=== PATIENT | female | born 1975 | race Caucasian/White ===

== ENCOUNTER 2019-01-19 07:10 | Outpatient (CLI) | payer OTHER ==
--- NOTE | 2019-01-19 09:45 | MRI Report ---
Reason: HEADACHE Procedure Date: 01/19/2019 Accession Number: [id number] / [id number] Procedure: MRI - Brain W/O CPT Code: FULL RESULT: EXAM: MRI BRAIN WITHOUT CONTRAST EXAM DATE: 01/19/2019 07:49 AM. CLINICAL HISTORY: HEADACHE. COMPARISON: None. TECHNIQUE: Multiplanar, multisequence T1-weighted and fluid-sensitive MR sequences of the brain were performed. Sequences optimized for routine evaluation. Other: None. IV Contrast: None. FINDINGS: Brain Volume: Normal for age. Parenchyma/Dura: No mass, acute infarct or hemorrhage. There is a single 4 mm focus of increased T2 signal involving left posterior frontal white matter. No additional white matter signal abnormality. Cerebellar tonsils normal. Ventricles/Cisterns: No hydrocephalus. No abnormal extra-axial fluid collection or hemorrhage. Orbits: Symmetric and unremarkable. Sella Turcica: Unremarkable. IAC: Symmetric and unremarkable. Vasculature: Normal signal flow void is seen in the major arterial structures at the skull base. Sinuses: There is moderate bilateral maxillary sinus mucosal thickening. There is mild ethmoid sinus mucosal thickening. No sinus fluid levels. Bones: No focal pathologic appearing marrow signal changes. Other: None. IMPRESSION: 1. No evidence of infarct, mass, or other acute intracranial process. 2. Single focus of nonspecific white matter signal change, within normal limits for adults. This may be seen as a sequela of migraine. 3. Mild chronic appearing paranasal sinus disease. [facility]
== END 2019-01-19 07:11 | disposition home or self-care (01) ==
LOC: DI 07:10
PROVIDERS: ATTEND Family Medicine
DX: R51 Headache (principal)
CPT/HCPCS: 70551